=== PATIENT | male | born 1965 | race Caucasian/White ===

== ENCOUNTER 2017-12-31 18:18 | Emergency (ER) | payer OTHER ==
[2017-12-31] MEDS ORDERED: TETANUS,DIPHTHERIA,PERTUSSIS 1 EA SYG IM ONE (18:30)
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
[2017-12-31] MEDS ORDERED: levoFLOXacin 500MG IV 100 ML IVPB ONE (20:21)
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
[2017-12-31 20:53] VITALS: BP 100/57; TEMP 96.8; O2SAT 95
[2017-12-31] MEDS ORDERED: fentaNYL CITRATE INJ 50 MCG/ML AMP ONE (20:55)
[2017-12-31] MEDS ORDERED: levoFLOXacin 500MG IV 500 MG in PREMIX BAG 1 BAG IVPB ONE (21:25)
[2017-12-31] MEDS ORDERED: fentaNYL CITRATE INJ 50 MCG/ML AMP IV ONE (21:26)
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
== END 2017-12-31 21:18 | disposition short-term general hospital (02) ==
LOC: ER 18:18
DX: S20.219A Contusion of unspecified front wall of thorax, initial encounter (principal); S22.49XA Multiple fractures of ribs, unspecified side, initial encounter for closed fracture; S32.402A Unspecified fracture of left acetabulum, initial encounter for closed fracture; S82.401B Unspecified fracture of shaft of right fibula, initial encounter for open fracture type I or II; S51.811A Laceration without foreign body of right forearm, initial encounter; Z88.0 Allergy status to penicillin; V43.52XA Car driver injured in collision with other type car in traffic accident, initial encounter; Y92.411 Interstate highway as the place of occurrence of the external cause
CPT/HCPCS: 36415; 70450; 71045; 71250; 72125; 72131; 72192; 73700; 74177; 80053; 81001; 82550; 82553; 83690; 84484; 85025; 86850; 86900; 86901; 90471; 90715; 93005; J1956; J3010